=== PATIENT | male | born 1980 | race Caucasian/White ===

== ENCOUNTER 2023-03-03 11:07 | Emergency (ER) | payer SELFPAY ==
[~2023-03-03] VITALS: Ht 182.9 cm; Wt 74.8 kg
[2023-03-03] VITALS (8 sets, daily range): BP systolic 132–158; BP diastolic 93–117
[2023-03-03] MEDS ORDERED: DESCOVY (11:29)
[2023-03-03] MEDS ORDERED: SOMA350 MG PO (11:30)
== END 2023-03-03 15:28 | disposition home or self-care (01) | DRG 563 ==
LOC: ED 11:07
PROC: 0RSJXZZ Reposition Right Shoulder Joint, External Approach (ICD-10-PCS; principal; 2023-03-03)
DX: M24.411 Recurrent dislocation, right shoulder (principal); F17.290 Nicotine dependence, other tobacco product, uncomplicated